=== PATIENT | male | born 1995 | race Caucasian/White ===

== ENCOUNTER 2021-12-21 21:32 | Emergency (ER) | payer SELFPAY ==
[~2021-12-21] VITALS: Ht 175.2 cm; Wt 71.7 kg
[~2021-12-21 21:32] MED LIST: NKHM; VICODIN
[2021-12-21 23:03] LABS: BASO # 0.1 10*3/uL (0.0-0.1); BASO % 0.4 % (0.0-1.0); EOS % 0.3 % (1.0-4.0); HEMATOCRIT 48.2 % (42.0-52.0); LYMPH # 2.5 10*3/uL (1.3-4.4); LYMPH % 20.2 % (27.0-41.0); MEAN CELL VOLUME 88.3 fl (80.0-94.0); MEAN CORPUSCULAR HGB 31.3 pg (27.0-31.0); MEAN CORPUSCULAR HGB CONC 35.5 g/dl (33.0-37.0); MEAN PLATELET VOLUME 10.9 fl (9.6-12.3); MONO # 0.9 10*3/uL (0.1-1.0); NEUT # 8.8 10*3/uL (2.3-7.9); NEUT % 71.9 % (47.0-73.0); PLATELET COUNT AUTOMATED 275 10*3/uL (130-400); RED BLOOD COUNT 5.46 10*6/uL (4.50-5.90); RED CELL DISTRI WIDTH 11.9 % (0-14.5); WHITE BLOOD COUNT 12.2 10*3/uL (4.8-10.8)
[2021-12-21 23:17] LABS: ACT PARTIAL THROMBO TIME 27.7 SECONDS (20.0-32.1)
[2021-12-21 23:20] LABS: ALKALINE PHOSPHATASE 57 U/L (45-117); BUN 14 mg/dl (7-24); CHLORIDE 107 mmol/L (98-107); CREATININE 0.93 mg/dL (0.70-1.30); POTASSIUM 3.1 mmol/L (3.5-5.1); SGOT/AST 21 IU/L (3-35); SGPT/ALT 32 U/L (12-78); SODIUM 140 mmol/L (136-145); TOTAL PROTEIN 7.8 gm/dL (6.4-8.2)
== END 2021-12-22 00:22 | disposition home or self-care (01) ==
LOC: ED 21:32 → EDBD 21:36 → ED 12-22 00:22
PROVIDERS: Internal Medicine
DX: R42 Dizziness and giddiness (principal); F41.9 Anxiety disorder, unspecified; E87.6 Hypokalemia; R20.2 Paresthesia of skin

== ENCOUNTER 2022-01-31 18:25 | Emergency (ER) | payer SELFPAY ==
[~2022-01-31] VITALS: Ht 175.2 cm; Wt 73.5 kg
== END 2022-01-31 21:28 | disposition home or self-care (01) ==
LOC: ED 18:25
DX: S63.501A Unspecified sprain of right wrist, initial encounter (principal); F17.200 Nicotine dependence, unspecified, uncomplicated; W22.8XXA Striking against or struck by other objects, initial encounter; Z98.890 Other specified postprocedural states; Y93.89 Activity, other specified; Y92.89 Other specified places as the place of occurrence of the external cause; Y99.8 Other external cause status

== ENCOUNTER 2022-08-22 17:17 | Emergency (ER) | payer OTHER | END 2022-08-22 19:32 | disposition home or self-care (01) | LOC: ED 17:17 | DX: R45.7 State of emotional shock and stress, unspecified (principal); Z98.890 Other specified postprocedural states ==

== ENCOUNTER 2024-10-17 13:30 | Emergency (ER) | payer MEDICAID ==
[~2024-10-17] VITALS: Ht 172.7 cm; Wt 71.7 kg
[2024-10-17] MEDS ORDERED: Bacitracin Zinc 14 GM TUBE T ONE (15:00)
[2024-10-17] MEDS ORDERED: Tdap Vaccine 0.5 ML SYR (Adult Vaccine) IM ONE (15:00)
[2024-10-17] MEDS ORDERED: ANTIBIOTIC28.4 GM T (15:03)
[2024-10-17] MEDS ORDERED: SEPTDS PO (15:03)
== END 2024-10-17 15:26 | disposition home or self-care (01) ==
LOC: ED 13:30
DX: L02.214 Cutaneous abscess of groin (principal)